=== PATIENT | male | born 1975 | race Caucasian/White ===

== ENCOUNTER 2016-04-27 15:08 | Emergency (ER) | payer OTHER | END 2016-04-27 16:08 | disposition home or self-care (01) | LOC: ER 15:08 | DX: S50.11XD Contusion of right forearm, subsequent encounter (principal); W20.8XXD Other cause of strike by thrown, projected or falling object, subsequent encounter; L08.9 Local infection of the skin and subcutaneous tissue, unspecified; F32.9 Major depressive disorder, single episode, unspecified; F17.210 Nicotine dependence, cigarettes, uncomplicated; Z88.6 Allergy status to analgesic agent | CPT/HCPCS: 73090; 99070; 99283-25 ==

== ENCOUNTER 2016-05-06 19:08 | Emergency (ER) | payer OTHER | END 2016-05-06 19:45 | disposition home or self-care (01) | LOC: ER 19:08 | DX: S50.11XA Contusion of right forearm, initial encounter (principal); W19.XXXA Unspecified fall, initial encounter; Y92.009 Unspecified place in unspecified non-institutional (private) residence as the place of occurrence of the external cause; F17.210 Nicotine dependence, cigarettes, uncomplicated; Z79.899 Other long term (current) drug therapy | CPT/HCPCS: 73080; 73090; 73110; 99070; 99283-25 ==

== ENCOUNTER 2016-05-21 17:52 | Emergency (ER) | payer OTHER | END 2016-05-21 18:52 | disposition home or self-care (01) | LOC: ER 17:52 | DX: L03.113 Cellulitis of right upper limb (principal); G89.29 Other chronic pain; M79.601 Pain in right arm; F17.210 Nicotine dependence, cigarettes, uncomplicated; Z88.6 Allergy status to analgesic agent | CPT/HCPCS: 73060; 73090; 96372; 99070; 99283-25 ==

== ENCOUNTER 2016-07-31 14:10 | Emergency (ER) | payer OTHER | END 2016-07-31 21:12 | disposition home or self-care (01) | LOC: ER 14:10 | DX: S40.022A Contusion of left upper arm, initial encounter (principal); W20.8XXA Other cause of strike by thrown, projected or falling object, initial encounter; Y93.H9 Activity, other involving exterior property and land maintenance, building and construction; Y92.009 Unspecified place in unspecified non-institutional (private) residence as the place of occurrence of the external cause; F17.210 Nicotine dependence, cigarettes, uncomplicated; Z88.6 Allergy status to analgesic agent | CPT/HCPCS: 73060; 73080; 99070; 99283-25 ==